=== PATIENT | female | born 1945 | race Caucasian/White ===

== ENCOUNTER 2020-05-26 16:39 | Emergency (ER) | payer OTHER, MEDICARE ==
--- OUTSIDE RECORDS SUMMARY | 2020-05-26 16:40 | XMS REPORT | Continuity of Care Document ---
:1945 Author Organization [facility] t Address [address] [place] [address] Care Team Providers Name Role Phone Karlos Calderon MD Attending Clinician Problems This patient has no known problems. Allergies, Adverse Reactions, Alerts This patient has no known allergies or adverse reactions. Medications This patient has no known medications. Procedures This patient has no known procedures. Encounters Start End Encounter Admission Attending Care Care Encounter Source Date/Time Date/Time Type Type Clinicians Facility Department ID 2019-05-28 2019-05-28 Refill RON Calderon [id number] 00:00:00 00:00:00 Karlos Morgan [id number] [place] [id number] [place] [id number] [facility] [address] Results This patient has no known results.
[2020-05-26] MEDS ORDERED: TETANUS & DIPHTHERIA TOX,ADULT 0.5 ML VIAL ONE (17:44)
[2020-05-26 18:44] LABS: Absolute Lymphocytes (CBC) 0.4 K/uL (0.7-4.9); Basophils % 0.7 % (0-1.3); Hematocrit 38.9 % (36.0-45.0); Lymphocytes % 2.1 % (15.3-44.8); MPV 8.3 fL (7.6-11.3); RBC Red Blood Cell Count 4.62 M/uL (3.86-4.86)
[2020-05-26 18:54] LABS: Potassium 4.1 mmol/L (3.5-5.1)
--- NOTE | 2020-05-26 19:14 | EDPHYS ---
Physician Documentation [facility] Name: Cassandra Singh Age: 74 yrs Sex: Female : 1945 Arrival Date: 05/26/2020 Time: 16:44 Bed 23 Private MD: ED Physician Solis Keenan HPI: 05/26 17:17 This 74 yrs old Female presents to ER via Unassigned with complaints of fall kdr and left arm trapped. 17:17 The patient slipped out of bed to the ground but her left arm became trapped and she kdr laid on the floor for about five hours. She now c/o abrasion to her right forearm and has no other c/o of concerns. Onset: The symptoms/episode began/occurred suddenly, this morning, today. Severity of symptoms: At their worst the symptoms were very mild in the emergency department the symptoms have resolved. The patient has not experienced similar symptoms in the past. The patient has not recently seen a physician. Historical: - Allergies: 17:24 Morphine; ca1 - PMHx: 17:24 Diabetes - IDDM; Hypertension; Cervical Cancer; uterine cancer; Kidney problem; ca1 - PSHx: 17:24 Hysterectomy; ca1 - Immunization history:: Adult Immunizations up to date. - Social history:: Smoking status: Patient denies any tobacco usage or history of. ROS: 17:17 Constitutional: Negative for fever, chills, and weight loss, Eyes: Negative for injury, kdr pain, redness, and discharge, ENT: Negative for injury, pain, and discharge, Neck: Negative for injury, pain, and swelling, Cardiovascular: Negative for chest pain, palpitations, and edema, Respiratory: Negative for shortness of breath, cough, wheezing, and pleuritic chest pain, Abdomen/GI: Negative for abdominal pain, nausea, vomiting, diarrhea, and constipation, Back: Negative for injury and pain, : Negative for injury, bleeding, discharge, and swelling, Neuro: Negative for headache, weakness, numbness, tingling, and seizure activity. Psych: Negative for depression, anxiety, suicide ideation, homicidal ideation, and hallucinations, Allergy/Immunology: Negative for hives, rash, and allergies, Endocrine: Negative for neck swelling, polydipsia, polyuria, polyphagia, and marked weight changes, Hematologic/Lymphatic: Negative for swollen nodes, abnormal bleeding, and unusual bruising. 17:17 Skin: Positive for abrasion(s), discoloration, Negative for avulsion, burn, ecchymosis, hematoma, jaundice, lesions, pallor, puncture, swelling. Exam: 17:17 Constitutional: This is a well developed, well nourished patient who is awake, alert, kdr and in no acute distress. Head/Face: Normocephalic, atraumatic. Eyes: Pupils equal round and reactive to light, extra-ocular motions intact. Lids and lashes normal. Conjunctiva and sclera are non-icteric and not injected. Cornea within normal limits. Periorbital areas with no swelling, redness, or edema. Neck: Trachea midline, no thyromegaly or masses palpated, and no cervical lymphadenopathy. Supple, full range of motion without nuchal rigidity, or vertebral point tenderness. No Meningismus. Chest/axilla: Normal chest wall appearance and motion. Nontender with no deformity. No lesions are appreciated. Cardiovascular: Regular rate and rhythm with a normal S1 and S2. No gallops, murmurs, or rubs. Normal PMI, no JVD. No pulse deficits. Respiratory: Lungs have equal breath sounds bilaterally, clear to auscultation and percussion. No rales, rhonchi or wheezes noted. No increased work of breathing, no retractions or nasal flaring. Abdomen/GI: Soft, non-tender, with normal bowel sounds. No distension or tympany. No guarding or rebound. No evidence of tenderness throughout. Back: No spinal tenderness. No costovertebral tenderness. Full range of motion. MS/ Extremity: Pulses equal, no cyanosis. Neurovascular intact. Full, normal range of motion. Neuro: Awake and alert, GCS 15, oriented to person, place, time, and situation. Cranial nerves II-XII grossly intact. Motor strength 5/5 in all extremities. Sensory grossly intact. Cerebellar exam normal. Normal gait. Psych: Awake, alert, with orientation to person, place and time. Behavior, mood, and affect are within normal limits. 17:17 Skin: injury, abrasion(s), very small abrasion noted, of the palmar aspect of right forearm. Vital Signs: 16:45 BP 112 / 50; Pulse 89; Resp 16 S; Temp 97.3(O); Pulse Ox 98% on R/A; Weight 95.25 kg ca1 (R); Height 5 ft. 1 in. (154.94 cm) (R); 17:32 BP 110 / 56; Pulse 84; Resp 16 S; Pulse Ox 100% on R/A; ca1 18:27 BP 120 / 56; Pulse 81; Resp 16 S; Pulse Ox 100% on R/A; ca1 19:27 BP 120 / 77; Pulse 88; Resp 16; Pulse Ox 100% on R/A; zb 16:45 Body Mass Index 39.68 (95.25 kg, 154.94 cm) ca1 MDM: 17:17 Data reviewed: vital signs, nurses notes, lab test result(s), radiologic studies. kdr Counseling: I had a detailed discussion with the patient and/or guardian regarding: the historical points, exam findings, and any diagnostic results supporting the discharge/admit diagnosis, lab results, radiology results, the need for outpatient follow up. 18:23 Patient medically screened. rashawn 05/26 17:16 Order name: CBC with Diff kdr 05/26 17:16 Order name: Chem 7 kdr 05/26 17:16 Order name: CPK kdr 05/26 17:17 Order name: CBC with Automated Diff EDMS 05/26 17:17 Order name: Basic Metabolic Panel; Complete Time: 19:01 EDMS 05/26 17:17 Order name: Creatine Phosphokinase; Complete Time: 19:01 EDMS 05/26 17:22 Order name: Misc. Order: Clean and dress wound on right forearm; Complete Time: 18:51 kdr 05/26 17:24 Order name: Glucose, Ancillary Testing; Complete Time: 17:52 EDMS Administered Medications: 17:29 Drug: Tetanus-Diphtheria Toxoid Adult 0.5 ml {[employer]: [employer]. Exp: ca1 07/16/2021. Lot #: [id number]. } Route: IM; Site: right deltoid; 19:29 Follow up: Response: No adverse reaction zb Disposition: 05/26/20 19:13 Discharged to Home. Impression: Fall due to bumping against object, Abrasion of right forearm, Rhabdomyolysis. - Condition is Stable. - Discharge Instructions: Abrasion, Rhabdomyolysis, Abrasion, [id number], Fall Prevention in the Home, [id number]. - Medication Reconciliation Form, Thank You Letter, Antibiotic Education, Prescription Opioid Use form. - Follow up: Private Physician; When: 2 - 3 days; Reason: Recheck today's complaints, Continuance of care, Re-evaluation by your physician. - Problem is new. - Symptoms have improved. Signatures: Dispatcher [employer] EDPR Solis Keenan MD MD cha Rittger, Kevin, MD MD kdr Acob, Cheryl, RN RN ca1 Brown, Zipporah, RN RN zb Corrections: (The following items were deleted from the chart) 19:51 19:13 05/26/2020 19:13 Discharged to Home. Impression: Fall due to bumping against zb object; Abrasion of right forearm; Rhabdomyolysis. Condition is Stable. Forms are Medication Reconciliation Form, Thank You Letter, Antibiotic Education, Prescription Opioid Use. Follow up: Private Physician; When: 2 - 3 days; Reason: Recheck today's complaints, Continuance of care, Re-evaluation by your physician. Problem is new. Symptoms have improved. rashawn
--- NOTE | 2020-05-26 19:14 | ER ---
Nurse's Notes [facility] Name: Cassandra Singh Age: 74 yrs Sex: Female : 1945 Arrival Date: 05/26/2020 Time: 16:44 Bed 23 Private MD: Diagnosis: Fall due to bumping against object;Abrasion of right forearm;Rhabdomyolysis Presentation: 05/26 16:45 Chief complaint: EMS states: She was getting out of bed when her R arm got caught ca1 between the bed frame and the bed. Her R arm was stuck there and she was bent beside the bed for no less than 8 hrs until a a family member came by and called us. We helped her out of there and she reported being dizzy and weak upon standing. Initially R arm was numb with slow capillary refill, pulses present. Skin tear also noted on R arm. Noticed also slurring of speech which family reports was unusual for her but happens at times when her BGL is low. BGL is 87, and 2 failed IV attempts. Pt A\T\Ox4, VAN negative. Noticed pt does not have her dentures, and has trouble enunciating. Negative slurring. Coronavirus screen: Client denies travel out of the [place] in the last 14 days. At this time, the client does not indicate any symptoms associated with coronavirus-19. Ebola Screen: Patient negative for fever greater than or equal to 101.5 degrees Fahrenheit, and additional compatible Ebola Virus Disease symptoms Patient denies exposure to infectious person. Patient denies travel to an Ebola-affected area in the 21 days before illness onset. No symptoms or risks identified at this time. Initial Sepsis Screen: Does the patient meet any 2 criteria? No. Patient's initial sepsis screen is negative. Does the patient have a suspected source of infection? No. Patient's initial sepsis screen is negative. Risk Assessment: Do you want to hurt yourself or someone else? Patient reports no desire to harm self or others. Onset of symptoms was May 26, 2020. 16:45 Method Of Arrival: EMS: [facility] ca1 16:45 Acuity: ANIBAL 3 ca1 Historical: - Allergies: 17:24 Morphine; ca1 - PMHx: 17:24 Diabetes - IDDM; Hypertension; Cervical Cancer; uterine cancer; Kidney problem; ca1 - PSHx: 17:24 Hysterectomy; ca1 - Immunization history:: Adult Immunizations up to date. - Social history:: Smoking status: Patient denies any tobacco usage or history of. Screenin:48 Abuse screen: Denies threats or abuse. Denies injuries from another. Nutritional ca1 screening: No deficits noted. Tuberculosis screening: No symptoms or risk factors identified. Fall Risk Fall in past 12 months (25 points). IV access (20 points). Ambulatory Aid- Crutches/Cane/Walker (15 pts). Total Braun Fall Scale indicates High Risk Score (45 or more points). Fall prevention measures have been instituted. Side Rails Up X 2 As available patient and family educated on Fall Prevention Program and Strategies. Assessment: 16:48 General: Appears in no apparent distress. comfortable, Behavior is calm, cooperative, ca1 appropriate for age. Pain: Complains of pain in right arm Pain currently is 6 out of 10 on a pain scale. Neuro: Level of Consciousness is awake, alert, obeys commands, Oriented to person, place, time, situation, Energy Project Manager are equal bilaterally Moves all extremities. Speech is normal, Facial symmetry appears normal, Pupils are PERRLA, Intact. Cardiovascular: Heart tones S1 S2 present Capillary refill < 3 seconds Patient's skin is warm and dry. Respiratory: Airway is patent Respiratory effort is even, unlabored, Respiratory pattern is regular, symmetrical, Breath sounds are clear bilaterally. GI: Abdomen is round non-distended, Bowel sounds present X 4 quads. Abd is soft and non tender X 4 quads. : No signs and/or symptoms were reported regarding the genitourinary system. EENT: No signs and/or symptoms were reported regarding the EENT system. Derm: Skin is intact, is healthy with good turgor, Skin is pink, warm \T\ dry. Musculoskeletal: Circulation, motion, and sensation intact. Capillary refill < 3 seconds. 17:32 Reassessment: Patient appears in no apparent distress at this time. Patient and/or ca1 family updated on plan of care and expected duration. Pain level reassessed. Patient is alert, oriented x 3, equal unlabored respirations, skin warm/dry/pink. 18:27 Reassessment: Patient appears in no apparent distress at this time. Patient and/or ca1 family updated on plan of care and expected duration. Pain level reassessed. Patient is alert, oriented x 3, equal unlabored respirations, skin warm/dry/pink. 19:29 Reassessment: d/c instructions given. patient wheeled out by mobile sales technician. zb 19:39 Reassessment: discharge pending patient arrival. zb Vital Signs: 16:45 BP 112 / 50; Pulse 89; Resp 16 S; Temp 97.3(O); Pulse Ox 98% on R/A; Weight 95.25 kg ca1 (R); Height 5 ft. 1 in. (154.94 cm) (R); 17:32 BP 110 / 56; Pulse 84; Resp 16 S; Pulse Ox 100% on R/A; ca1 18:27 BP 120 / 56; Pulse 81; Resp 16 S; Pulse Ox 100% on R/A; ca1 19:27 BP 120 / 77; Pulse 88; Resp 16; Pulse Ox 100% on R/A; zb 16:45 Body Mass Index 39.68 (95.25 kg, 154.94 cm) ca1 ED Course: 16:44 Patient arrived in ED. em1 16:45 Arm band placed on right wrist. ca1 16:48 Patient has correct armband on for positive identification. Bed in low position. Call ca1 light in reach. Side rails up X 1. Pulse ox on. NIBP on. Warm blanket given. 17:00 Missed attempt(s): 20 gauge in left forearm. dh4 17:06 Lloyd Steward MD is Attending Physician. kdr 17:13 Flavia Madrid, ELENI is Primary Nurse. ca1 17:23 Triage completed. ca1 17:50 Missed attempt(s): 22 gauge in left forearm. Bleeding controlled, band aid applied, ca1 catheter tip intact. 18:00 Wound care: to skin tear located on palmar aspect of right forearm was cleaned with ca1 Hibiclens, dressed with Neosporin, 4X4s, Patient tolerated well. 18:01 Missed attempt(s): 24 gauge in right hand. Bleeding controlled, band aid applied, ca1 catheter tip intact. 18:22 Attending Physician role handed off by Lloyd Steward MD rashawn 18:22 Solis Keenan MD is Attending Physician. rashawn 18:26 Initial lab(s) drawn, by ky, sent to lab. Missed attempt(s):. Inserted saline lock: 24 ca1 gauge in right forearm, using aseptic technique. ,using aseptic technique. by ELENI Ambriz Blood collected. 19:26 No provider procedures requiring assistance completed. IV discontinued, intact, zb bleeding controlled, No redness/swelling at site. Pressure dressing applied. Administered Medications: 17:29 Drug: Tetanus-Diphtheria Toxoid Adult 0.5 ml {Pattern Technician: [employer]. Exp: ca1 07/16/2021. Lot #: [id number]. } Route: IM; Site: right deltoid; 19:29 Follow up: Response: No adverse reaction zb Outcome: 19:13 Discharge ordered by . rashawn 19:26 Discharged to home via wheelchair. zb 19:26 Condition: stable 19:26 Discharge instructions given to patient, Instructed on discharge instructions, follow up and referral plans. Demonstrated understanding of instructions, follow-up care. 19:51 Patient left the ED. zb Signatures: Solis Keenan MD MD cha Rittger, Kevin, MD MD kdr Martinez, Eric em1 Flavia Madrid RN RN ca1 Julio C Almonte 4 Lupe Stark RN RN zb
[2020-05-26 20:11] VITALS: TEMP 97.3
[2020-05-26 20:12] VITALS: O2SAT 100
[2020-05-26 20:15] VITALS: BP 120/77
[2020-05-26 20:42] LABS: Blood Morphology Comment NOT SEEN (NOT SEEN); Platelet Estimate ADEQ; White Blood Cell Scan OK (OK)
== END 2020-05-26 19:51 | disposition home or self-care (01) ==
LOC: ER 16:39
DX: S50.811A Abrasion of right forearm, initial encounter (principal); M62.82 Rhabdomyolysis; W06.XXXA Fall from bed, initial encounter; Y93.89 Activity, other specified; Y92.003 Bedroom of unspecified non-institutional (private) residence as the place of occurrence of the external cause; Z23 Encounter for immunization; Z88.5 Allergy status to narcotic agent; Z85.41 Personal history of malignant neoplasm of cervix uteri; Z85.42 Personal history of malignant neoplasm of other parts of uterus; I10 Essential (primary) hypertension
CPT/HCPCS: 36415; 80048; 82550; 82947; 85025; 90471; 90714; 99284